=== PATIENT | female | born 1950 | race Caucasian/White ===

== ENCOUNTER 2020-01-12 19:26 | Emergency (ER) | payer MEDICARE ==
[~2020-01-12] VITALS: Ht 172.7 cm; Wt 70.3 kg
[2020-01-12] MEDS ORDERED: LORA.5 (19:37)
[2020-01-12 21:16] LABS: Source, Urine Clean Catch
[2020-01-12 21:27] LABS: Appearance, Urine Turbid (Clear); Bilirubin, Urine Neg (Neg); Blood, Urine 4+ (Neg); Color, Urine Orange (P-Yellow); Glucose Qualitative, Urine Neg (Neg); Ketones, Urine 1+ (Neg); Leukocyte Esterase, Urine 3+ (Neg); Nitrite, Urine Pos (Neg); Protein, Urine 3+ (Neg); Specific Gravity, Urine 1.025 (1.003-1.022); Urobilinogen, Urine 1+ (Normal)
[2020-01-12] MEDS ORDERED: LORAZEPAM0.5 MG (21:27)
[2020-01-12 21:32] LABS: Bacteria Many /hpf; Red Blood Cells, Urine 0-2 /hpf (0-2); Squamous Epithelial Cells Rare /hpf (Few); White Blood Cells, Urine TNTC /hpf (0-5)
[2020-01-12] MEDS ORDERED: CEPH500 PO (21:33)
== END 2020-01-12 21:52 | disposition home or self-care (01) ==
LOC: ER 19:26
PROVIDERS: Student in an Organized Health Care Education/Training Program
DX: N39.0 Urinary tract infection, site not specified (principal)
CPT/HCPCS: 81001; 87077; 87086; 87186; 99283; A9270-GY

== ENCOUNTER → 2020-03-26 | Outpatient (CLI) | payer MEDICARE ==
[~2020-03-26] MED LIST: CEPH500 PO; LORA.5; LORAZEPAM0.5 MG
== END ==
LOC: PLD 07:51 → LAB SHORT 07:51
DX: L82.0 Inflamed seborrheic keratosis (principal)
CPT/HCPCS: 88305

== ENCOUNTER 2021-01-29 04:09 | Emergency (ER) | payer MEDICARE ==
[~2021-01-29] VITALS: Ht 172.7 cm; Wt 64.4 kg
== END 2021-01-29 07:21 | disposition home or self-care (01) ==
LOC: ER 04:09
DX: S00.83XA Contusion of other part of head, initial encounter (principal); Z79.899 Other long term (current) drug therapy; W01.190A Fall on same level from slipping, tripping and stumbling with subsequent striking against furniture, initial encounter
CPT/HCPCS: 99282

== ENCOUNTER 2021-08-12 11:37 | Day surgery (SDC) | payer MEDICARE ==
[~2021-08-12] VITALS: Ht 172.7 cm; Wt 60.0 kg
[2021-08-12] MEDS ORDERED: Aspir 8181 MG (12:22)
== END 2021-08-12 14:11 | disposition home or self-care (01) ==
LOC: ORSCSDS 11:37
PROVIDERS: Anesthesiology
PROC: 3E0R33Z Introduction of Anti-inflammatory into Spinal Canal, Percutaneous Approach (ICD-10-PCS; principal; 2021-08-12 13:00)
DX: M51.16 Intervertebral disc disorders with radiculopathy, lumbar region (principal); Z79.82 Long term (current) use of aspirin; Z79.899 Other long term (current) drug therapy
CPT/HCPCS: J1040